=== PATIENT | male | born 1970 | race Caucasian/White ===

== ENCOUNTER 2017-01-29 10:03 | Emergency (ER) | payer BC, OTHER ==
[~2017-01-29] VITALS: Ht 180.3 cm; Wt 85.0 kg
[2017-01-29] MEDS ORDERED: LISI-170 PO (10:35)
[2017-01-29] MEDS ORDERED: LOVA40TA2 PO (10:35)
[2017-01-29] MEDS ORDERED: METF500T4 PO (10:35)
[2017-01-29] MEDS ORDERED: MAGNESIUM CITRATE 300ML ORAL SOL ONE (10:43)
[2017-01-29] MEDS ORDERED: MAGNESIUM CITRATE 300ML ORAL SOL PO ONE (11:00)
[2017-01-29 12:23] VITALS: BP 116/76
[2017-01-29] MEDS ORDERED: HYDROcodone/APAP 5/325 TABLET PO PRN (12:30)
== END 2017-01-29 13:02 | disposition home or self-care (01) ==
LOC: ED 12:56
DX: K59.00 Constipation, unspecified (principal); E11.9 Type 2 diabetes mellitus without complications
CPT/HCPCS: 74020; 81003; 99285